=== PATIENT | male | born 1940 | race Caucasian/White ===

== ENCOUNTER 2018-07-07 08:37 | Outpatient (CLI) | payer OTHER | END 2018-07-07 08:53 | disposition home or self-care (01) | LOC: LAB 08:37 → RAD 08:37 | DX: I11.9 Hypertensive heart disease without heart failure (principal) ==

== ENCOUNTER 2018-07-17 12:37 | Inpatient (IN) | payer OTHER ==
[~2018-07-17] VITALS: Ht 170.2 cm; Wt 95.3 kg
[2018-07-17] MEDS ORDERED: METROPOLOL PO (13:05)
[2018-07-17] MEDS ORDERED: FLUOXETINE HCL40 MG PO (13:05)
[2018-07-17] MEDS ORDERED: LISINOPRIL40 MG PO (13:06)
[2018-07-17] MEDS ORDERED: ATORVASTATIN CA40 MG PO (13:06)
[2018-07-17] MEDS ORDERED: AMLODIPINE BESYL5 MG PO (13:07)
== END 2018-07-24 12:44 | disposition home or self-care (01) | DRG 713 ==
LOC: O/R 07-22 06:00 → SURH 07-22 06:00 → SURG 07-22 08:30 → SURH 07-22 13:45
PROVIDERS: Urology
PROC: 0VT08ZZ Resection of Prostate, Via Natural or Artificial Opening Endoscopic (ICD-10-PCS; principal; 2018-07-22 08:30)
DX: N40.1 Benign prostatic hyperplasia with lower urinary tract symptoms (principal); D62 Acute posthemorrhagic anemia; I27.29 Other secondary pulmonary hypertension; I10 Essential (primary) hypertension